=== PATIENT | male | born 1975 | race Caucasian/White ===

== ENCOUNTER → 2017-03-07 | Outpatient (CLI) | payer BC ==
--- NOTE | 2017-03-07 13:32 | DIAGNOSTIC IMAGING REPORT ---
LEFT GREAT TOE 3 VIEWS CLINICAL HISTORY: Left great toe pain status post trauma COMPARISON: None. DISCUSSION: There is V-shaped nondisplaced intra-articular fracture involving the base of the distal phalanx. There is no dislocation IMPRESSION: Acute nondisplaced intra-articular fracture involving the base of the distal phalanx Electronically signed by: Joselo Wade M.D. 03/07/2017 1:31 PM Dictated Date/Time: 03/07/2017 1:30 PM
== END | disposition home or self-care (01) ==
LOC: C.RAD 13:10
PROVIDERS: ATTEND Nurse Practitioner
DX: S92.425A Nondisplaced fracture of distal phalanx of left great toe, initial encounter for closed fracture (principal); X58.XXXA Exposure to other specified factors, initial encounter; R58 Hemorrhage, not elsewhere classified